=== PATIENT | female | born 1985 | race African-American/Black ===

== ENCOUNTER 2017-08-04 01:52 | Emergency (ER) | payer MEDICAID ==
[~2017-08-04] VITALS: Ht 180.3 cm; Wt 81.2 kg
--- NOTE | 2017-08-04 01:59 | NUR ---
Note miller in EDM - 08/04/17 at 0201 by KASHMIR PT TO ER 9, PT BIB RA C/O BURNING WHEN HE URINATES X 2 WEEKS. PT PLACED ON VS MONITOR. RESP EVEN UNLABORED/NAD NOTED. AWAITING MD PASTOR.
--- NOTE | 2017-08-04 02:01 | NUR ---
PT TO ER BED 9. PT BIB RA, PT C/O LEFT KNEE PAIN. DENIES FALLING/INJURY X 1 DAY. PT PLACED ON VS MONITOR. RESP EVEN UNLABORED/NAD NOTED/AOX4.
[2017-08-04] MEDS ORDERED: IBUPROFEN 400 MG TABLET PO ONE (02:30)
[2017-08-04] MEDS ORDERED: IBUPROFEN 400 MG TABLET ONE (02:49)
--- NOTE | 2017-08-04 02:53 | NUR ---
PT REFUSED MOTRIN 800MG, STATES "I WANT BENEDRYL TO GO TO SLEEP". MD MADE AWARE, NO NEW ORDERS RECEIVED.
--- NOTE | 2017-08-04 03:14 | NUR ---
Patient discharged to home in stable condition. Patient refused written and verbal after care instructions. Patient refused prescription. Pt ambulatory with a steady gait.
[2017-08-04 03:17] VITALS: BP 122/90
== END 2017-08-04 03:18 | disposition home or self-care (01) ==
LOC: ER 01:55
DX: M25.562 Pain in left knee (principal); G89.29 Other chronic pain; E11.9 Type 2 diabetes mellitus without complications; Z88.6 Allergy status to analgesic agent; Z88.5 Allergy status to narcotic agent
CPT/HCPCS: 73564; 99284; A4606; Z7610

== ENCOUNTER 2017-12-03 01:31 | Emergency (ER) | payer MEDICAID ==
[~2017-12-03] VITALS: Ht 175.3 cm; Wt 65.8 kg
--- NOTE | 2017-12-03 01:31 | NUR ---
TO BED 9 BIB PARAMEDICS C/O HIGH BLOODSUGAR. PT AAOX4 NO ACUTE DISTRESS NOTED, RESP EVEN AND UNLABORED. PLACE PT ON CARDIAC MONITORING, CONTINUOUS POX. URINE SAMPLE COLLECTED AND SENT TO LAB. PENDING ER MD PASTOR.
--- NOTE | 2017-12-03 01:31 | NUR ---
PER EMS BS-HI. ER MD NUNN AWARE
--- NOTE | 2017-12-03 01:41 | NUR ---
ER MD AT BEDSIDE TO EVAL PT WITH ORDERS RECEIVED. WILL CARRY OUT ORDERS.
--- NOTE | 2017-12-03 01:50 | NUR ---
STARTED SL 18G TO LFRA, BLOOD DRAWN AND SENT TO LAB.
[2017-12-03] MEDS ORDERED: IV NS 0.9% 1,000 ML BAG IV ONE ×3 (02:00→03:30)
[2017-12-03 02:08] LABS: BASOPHILS % (AUTO) 0.4 % (0.0-2.0); EOSINOPHILS % (AUTO) 0.3 % (0.0-6.0); HEMATOCRIT 41 % (33-45); HEMOGLOBIN 12.9 g/dL (11.5-14.8); LYMPHOCYTES # (AUTO) 2.1 /CMM (0.8-4.8); LYMPHOCYTES % (AUTO) 35.4 % (20.0-44.0); MEAN CORPUSCULAR HGB CONC 32 g/dl (31.0-36.0); MEAN CORPUSCULAR VOLUME 84 fL (82-100); MONOCYTES # (AUTO) 0.4 /CMM (0.1-1.30); MONOCYTES % (AUTO) 7.4 % (2.0-12.0); NEUTROPHILS # (AUTO) 3.3 /CMM (1.8-8.9); NEUTROPHILS % (AUTO) 56.5 % (43.0-81.0); PLATELET COUNT (AUTO) 274 /CMM (150-450); RDW COEFFICIENT OF VARIATION 15.9 (11.5-15.0); RED BLOOD CELL COUNT(AUTO) 4.82 MIL/uL (4.0-5.2); WHITE BLOOD COUNT (AUTO) 5.9 K/uL (4.3-11.0)
[2017-12-03 02:15] LABS: APPEARANCE,URINE CLEAR (CLEAR); BILIRUBIN,URINE NEGATIVE (NEGATIVE); BLOOD, URINE NEGATIVE Ery/uL (NEGATIVE); COLOR,URINE YELLOW (YELLOW); KETONES,URINE NEGATIVE (NEGATIVE); LEUKOCYTE ESTERASE ,URINE NEGATIVE (NEGATIVE); NITRITE, URINE NEGATIVE (NEGATIVE); PROTEIN,URINE NEGATIVE (NEGATIVE); UGLUCOSE 3+ mg/dL (NEGATIVE); UROBILINOGEN,URINE 0.2 EU/dL (0.2)
[2017-12-03 02:28] LABS: RBC,URINE 0-2 /HPF (0-2)
[2017-12-03 02:29] LABS: BACTERIA,URINE None seen /HPF (None Seen); SQUAMOUS EPITHELIAL CELL,UR Few /HPF (None Seen); WBC,URINE 0-2 /HPF (0-3)
[2017-12-03 02:32] LABS: CALCIUM, SERUM 10.2 mg/dL (8.5-10.1); CREATININE 0.9 mg/dL (0.6-1.3); POTASSIUM 4.6 mmol/L (3.5-5.1)
[2017-12-03] MEDS ORDERED: INSULIN REGULAR, HUMAN 100 UNIT/ML 10 ML VIAL SQ ONE (03:00)
[2017-12-03] MEDS ORDERED: INSULIN REGULAR, HUMAN 100 UNIT/ML 10 ML VIAL ONE (03:02)
--- NOTE | 2017-12-03 03:12 | NUR ---
[facility] DICKERSON CALLED . WAITING FOR MD CALL BACK.
--- NOTE | 2017-12-03 03:38 | NUR ---
PT ACCEPTED AT [facility] BY DR STEWART, # FOR REPORT [phone]. ETA [id number]
--- NOTE | 2017-12-03 04:08 | NUR ---
REPORT CALLED TO [facility] CAMPOS. REPORT GIVEN TO [facility].
[2017-12-03 04:12] VITALS: BP 112/58
== END 2017-12-03 04:34 | disposition short-term general hospital (02) ==
LOC: ER 01:33
DX: E11.65 Type 2 diabetes mellitus with hyperglycemia (principal); I10 Essential (primary) hypertension; Z88.5 Allergy status to narcotic agent; Z88.6 Allergy status to analgesic agent
CPT/HCPCS: 36415; 80048-TC; 81000-TC; 82962-TC; 83605-TC; 84703-TC; 85025-TC; 87040-TC; 87081-TC; A4606; J1815; J7030; Z7610

== ENCOUNTER 2017-12-08 20:07 | Emergency (ER) | payer MEDICAID ==
[~2017-12-08] VITALS: Ht 180.3 cm; Wt 59.0 kg
[2017-12-08 20:08] VITALS: BP 151/112
[2017-12-08] MEDS ORDERED: ONDANSETRON 4 MG TAB.RAPDIS ONE (20:21)
[2017-12-08] MEDS ORDERED: ONDANSETRON 4 MG TAB.RAPDIS SL ONE (20:30)
[2017-12-08 20:55] LABS: CALCIUM, SERUM 9.3 mg/dL (8.5-10.1); CREATININE 0.6 mg/dL (0.6-1.3); POTASSIUM 3.9 mmol/L (3.5-5.1)
[2017-12-08 21:01] LABS: BASOPHILS % (AUTO) 0.6 % (0.0-2.0); EOSINOPHILS % (AUTO) 0.1 % (0.0-6.0); HEMATOCRIT 40 % (33-45); HEMOGLOBIN 13.2 g/dL (11.5-14.8); LYMPHOCYTES # (AUTO) 3.3 /CMM (0.8-4.8); LYMPHOCYTES % (AUTO) 43.4 % (20.0-44.0); MEAN CORPUSCULAR HGB CONC 33 g/dl (31.0-36.0); MEAN CORPUSCULAR VOLUME 81 fL (82-100); MONOCYTES # (AUTO) 0.5 /CMM (0.1-1.30); MONOCYTES % (AUTO) 6.2 % (2.0-12.0); NEUTROPHILS # (AUTO) 3.9 /CMM (1.8-8.9); NEUTROPHILS % (AUTO) 49.7 % (43.0-81.0); PLATELET COUNT (AUTO) 286 /CMM (150-450); RDW COEFFICIENT OF VARIATION 13.7 (11.5-15.0); RED BLOOD CELL COUNT(AUTO) 4.92 MIL/uL (4.0-5.2); WHITE BLOOD COUNT (AUTO) 7.7 K/uL (4.3-11.0)
[2017-12-08] MEDS ORDERED: INSULIN REGULAR, HUMAN 100 UNIT/ML 10 ML VIAL SQ ONE (22:00)
[2017-12-08] MEDS ORDERED: INSULIN REGULAR, HUMAN 100 UNIT/ML 10 ML VIAL ONE (22:01)
--- NOTE | 2017-12-08 22:03 | NUR ---
2ND VERIFICATION FOR 12 UNITS REG INSULIN.
[2017-12-08 22:20] LABS: APPEARANCE,URINE CLEAR (CLEAR); BILIRUBIN,URINE NEGATIVE (NEGATIVE); BLOOD, URINE NEGATIVE Ery/uL (NEGATIVE); COLOR,URINE YELLOW (YELLOW); KETONES,URINE NEGATIVE (NEGATIVE); LEUKOCYTE ESTERASE ,URINE NEGATIVE (NEGATIVE); NITRITE, URINE NEGATIVE (NEGATIVE); PROTEIN,URINE NEGATIVE (NEGATIVE); UGLUCOSE 3+ mg/dL (NEGATIVE); UROBILINOGEN,URINE 0.2 EU/dL (0.2)
[2017-12-08 22:24] LABS: BACTERIA,URINE Moderate /HPF (None Seen); RBC,URINE 0-2 /HPF (0-2); SQUAMOUS EPITHELIAL CELL,UR Many /HPF (None Seen); YEAST,URINE Few /HPF (None Seen)
--- NOTE | 2017-12-08 22:38 | NUR ---
PT'S BLOOD SUGAR IS 510. LAKESHIA HERNANDEZ IS AWARE. NEW ORDERS GIVEN AND CARRIED OUT.
[2017-12-08] MEDS ORDERED: IV NS 0.9% 1,000 ML IV ONE (23:00)
--- NOTE | 2017-12-08 23:13 | NUR ---
PT PULLED OUT HER IV AND REFUSED FURTHER TREATMENT. PT WAS GIVEN AN AMA FORM AND REFUSED TO SIGN. PT REC'D D/C PAPER AND REFUSED TO SIGN THE D/C PAPERWORK . PT AMBULATED OUT WITH A STEADY GAIT.
== END 2017-12-08 23:15 | disposition left against medical advice (07) ==
LOC: ER 20:09
DX: M79.642 Pain in left hand (principal); M79.641 Pain in right hand; M79.672 Pain in left foot; M79.671 Pain in right foot; R20.8 Other disturbances of skin sensation; E10.9 Type 1 diabetes mellitus without complications; I10 Essential (primary) hypertension; Z88.6 Allergy status to analgesic agent
CPT/HCPCS: 36415; 80048-TC; 81000-TC; 82962-TC; 85025-TC; 87086-TC; A4606; J1815; J7030; Q0162; Z7610

== ENCOUNTER 2017-12-09 15:27 | Emergency (ER) | payer MEDICAID ==
[~2017-12-09] VITALS: Ht 172.7 cm; Wt 74.8 kg
--- NOTE | 2017-12-09 15:40 | NUR ---
[id number] FOR BILATERAL FEET PAIN. PT STATES PAIN /10. PT IS AAOX4. RESP EVEN AND UNLBAORED. SKIN WARM,DRY,RED TO TOUCH. NO S/S OF ACUTE DISTRESS NOTED. VSS. PT PLACED ON MONITOR AND POX. -N/V/D.
--- NOTE | 2017-12-09 16:01 | NUR ---
ACCUCHECK SHOWS HIGH, AGRICULTURAL SCIENTIST DEGRASSE MAD AWARE OF RESULTS. AWAITING ORDERS.
[2017-12-09 16:26] LABS: BASOPHILS % (AUTO) 0.7 % (0.0-2.0); EOSINOPHILS % (AUTO) 0.2 % (0.0-6.0); HEMATOCRIT 38 % (33-45); HEMOGLOBIN 12.4 g/dL (11.5-14.8); LYMPHOCYTES # (AUTO) 2.1 /CMM (0.8-4.8); LYMPHOCYTES % (AUTO) 30.2 % (20.0-44.0); MEAN CORPUSCULAR HGB CONC 33 g/dl (31.0-36.0); MEAN CORPUSCULAR VOLUME 82 fL (82-100); MONOCYTES # (AUTO) 0.4 /CMM (0.1-1.30); MONOCYTES % (AUTO) 6.5 % (2.0-12.0); NEUTROPHILS # (AUTO) 4.4 /CMM (1.8-8.9); NEUTROPHILS % (AUTO) 62.4 % (43.0-81.0); PLATELET COUNT (AUTO) 256 /CMM (150-450); RDW COEFFICIENT OF VARIATION 14.1 (11.5-15.0); RED BLOOD CELL COUNT(AUTO) 4.58 MIL/uL (4.0-5.2); WHITE BLOOD COUNT (AUTO) 6.9 K/uL (4.3-11.0)
[2017-12-09] MEDS ORDERED: IV NS 0.9% 1,000 ML BAG IV ONE (16:30)
[2017-12-09 16:41] LABS: ALANINE AMINOTRANSFERASE 22 U/L (12-78); ALBUMIN 3.3 g/dL (3.4-5.0); ALKALINE PHOSPHATASE 113 U/L (46-116); ASPARTATE AMINOTRANSFERASE 15 U/L (15-37); BILIRUBIN,TOTAL 0.4 mg/dL (0.2-1.0); CALCIUM, SERUM 8.9 mg/dL (8.5-10.1); CARBON DIOXIDE 24 mmol/L (21-32); CHLORIDE 98 mmol/L (98-107); CREATININE 0.8 mg/dL (0.6-1.3); MAGNESIUM 1.5 mg/dL (1.8-2.4); PHOSPHORUS 3.3 mg/dL (2.5-4.9); POTASSIUM 4.5 mmol/L (3.5-5.1); SODIUM SERUM 129 mmol/L (136-145); TOTAL PROTEIN, SERUM 6.8 g/dL (6.4-8.2); UREA NITROGEN, BLOOD 9 mg/dL (7-18)
[2017-12-09 16:43] LABS: GLUCOSE 659 mg/dL (74-106)
[2017-12-09 17:05] LABS: APPEARANCE,URINE Clear (CLEAR); BILIRUBIN,URINE Negative (NEGATIVE); BLOOD, URINE Negative Ery/uL (NEGATIVE); COLOR,URINE Yellow (YELLOW); KETONES,URINE Negative (NEGATIVE); LEUKOCYTE ESTERASE ,URINE Negative (NEGATIVE); NITRITE, URINE Negative (NEGATIVE); PROTEIN,URINE Negative (NEGATIVE); UGLUCOSE 500 MG/DL mg/dL (NEGATIVE); UROBILINOGEN,URINE 0.2 EU/dL (0.2)
[2017-12-09] MEDS ORDERED: INSULIN REGULAR, HUMAN 100 UNIT/ML 10 ML VIAL SQ ONE ×2 (18:00→21:30)
--- NOTE | 2017-12-09 18:08 | NUR ---
COURTNEY GILBERTP TO PRESENT CASE
[2017-12-09] MEDS ORDERED: INSULIN REGULAR, HUMAN 100 UNIT/ML 10 ML VIAL ONE (18:11)
--- NOTE | 2017-12-09 18:37 | NUR ---
SPOKE TO KERN VALLEYP STATES WILL HAVE DOCTOR CALL SHORTLY REGARDING PATIENT
--- NOTE | 2017-12-09 19:07 | NUR ---
ACCUCHECK PERFORMED. ACCUCHECK 492, SOLUTIONS ENGINEER CONNER MADE AWARE.
--- NOTE | 2017-12-09 19:36 | NUR ---
Romeo bhatt in VIVI - 12/09/17 at 1938 by KHOA CALLED SIL[facility] DIAZ STATES NO CURRENT ETA WILL CALL LATER WITH MORE INFO.
--- NOTE | 2017-12-09 19:38 | NUR ---
[facility] NO CURRENT [facility] FOR [facility]ANCE WILL CALL LATER WITH MORE INFORMATION
[2017-12-09 20:07] VITALS: BP 156/102
--- NOTE | 2017-12-09 20:13 | NUR ---
[facility] ETA 2044
--- NOTE | 2017-12-09 20:16 | NUR ---
REPORT GIVEN TO JACQUELYN CORADO FROM [facility] FOR [facility].
--- NOTE | 2017-12-09 20:50 | NUR ---
PRN BEDSIDE FOR PT TRANSPORT TO [facility]
[2017-12-09] MEDS ORDERED: INSULIN ASPART/LISPRO 100 UNIT/ML CARTRIDGE SQ STA (20:58)
--- NOTE | 2017-12-09 21:09 | NUR ---
Patient Tranfers to outside Facility Physician: GAURAV FIERRO Location:[facility] PER MD ROTHMAN, PT WAS GIVEN 10 UNITS OF REGULAR INSUL SUBQ PRIOR TO PT BEING TRANSPORTED OUT. DOSE VERIFIED BY JACQUELYN TINEO. VSS UPON TRANSPORT
== END 2017-12-09 21:18 | disposition short-term general hospital (02) ==
LOC: ER 15:31
DX: E11.65 Type 2 diabetes mellitus with hyperglycemia (principal); E11.40 Type 2 diabetes mellitus with diabetic neuropathy, unspecified; F31.9 Bipolar disorder, unspecified; I10 Essential (primary) hypertension; Z59.0 Homelessness; Z79.4 Long term (current) use of insulin; Z91.19 Patient's noncompliance with other medical treatment and regimen; Z88.5 Allergy status to narcotic agent; Z88.6 Allergy status to analgesic agent
CPT/HCPCS: 36415; 80053; 81001; 82010; 82962 ×3; 83735; 84100; 85025; 96360; 96372 ×2; 99285; A4606; J1815 ×2; J7030; Z7610; 81000-TC

== ENCOUNTER 2017-12-15 19:56 | Emergency (ER) | payer MEDICAID ==
--- NOTE | 2017-12-15 19:58 | NUR ---
CAME IN BY AMBULANCE AND LEFT RIGHT AWAY BEFORE THE PARAMEDICS LEFT.
== END 2017-12-15 20:25 | disposition left against medical advice (07) ==
LOC: ER 19:58
DX: Z53.21 Procedure and treatment not carried out due to patient leaving prior to being seen by health care provider (principal)

== ENCOUNTER 2018-01-21 00:27 | Emergency (ER) | payer MEDICAID, OTHER ==
[~2018-01-21] VITALS: Ht 180.3 cm; Wt 80.7 kg
[2018-01-21] MEDS ORDERED: LORAZEPAM INJ 2 MG/ML VIAL IV ONE (01:00)
[2018-01-21] MEDS ORDERED: INSULIN REGULAR, HUMAN 100 UNIT/ML 10 ML VIAL IV ONE (01:00)
[2018-01-21] MEDS ORDERED: ASPIRIN 81 MG TAB.CHEW PO ONE (01:00)
--- NOTE | 2018-01-21 01:00 | NUR ---
PT BIBRA "AM COLD AND MY BLOOD SUGAR IS HIGH" PT AOX3 RR EVEN AND UNLABORED. NO SOB NOTED. NAD NOTED. NO NVD AT THIS TIME. PT PLACED ON MONTIOR PT NOT DIAPHORETIC. PT WITH HX OF INSULIN NONCOMPLIANCE. DR. GUADALUPE AT BEDSIDE FOR EVAL.
[2018-01-21] MEDS ORDERED: ASPIRIN 81 MG TAB.CHEW ONE (01:11)
[2018-01-21] MEDS ORDERED: INSULIN REGULAR, HUMAN 100 UNIT/ML 10 ML VIAL ONE (01:12)
[2018-01-21] MEDS ORDERED: LORAZEPAM INJ 2 MG/ML VIAL ONE (01:12)
[2018-01-21 01:31] LABS: BASOPHILS % (AUTO) 0.3 % (0.0-2.0); HEMATOCRIT 44 % (33-45); HEMOGLOBIN 14.2 g/dL (11.5-14.8); LYMPHOCYTES # (AUTO) 1.7 /CMM (0.8-4.8); LYMPHOCYTES % (AUTO) 26.1 % (20.0-44.0); MEAN CORPUSCULAR HGB CONC 33 g/dl (31.0-36.0); MEAN CORPUSCULAR VOLUME 81 fL (82-100); MONOCYTES # (AUTO) 0.4 /CMM (0.1-1.30); NEUTROPHILS # (AUTO) 4.4 /CMM (1.8-8.9); NEUTROPHILS % (AUTO) 67.6 % (43.0-81.0); PLATELET COUNT (AUTO) 253 /CMM (150-450); RDW COEFFICIENT OF VARIATION 13.8 (11.5-15.0); RED BLOOD CELL COUNT(AUTO) 5.37 MIL/uL (4.0-5.2); WHITE BLOOD COUNT (AUTO) 6.6 K/uL (4.3-11.0)
--- NOTE | 2018-01-21 01:36 | NUR ---
ACCUCHECK READING "HIGH" MD AWARE. PT MEDICATED ORDERED. INSULIN 15UNITS IV WITNESSED AND VERIFIED BY 2ND RN SILVANA
[2018-01-21 01:47] LABS: CALCIUM, SERUM 9.9 mg/dL (8.5-10.1); CARBON DIOXIDE 25 mmol/L (21-32); CHLORIDE 91 mmol/L (98-107); POTASSIUM 5.2 mmol/L (3.5-5.1); SODIUM SERUM 126 mmol/L (136-145); UREA NITROGEN, BLOOD 12 mg/dL (7-18)
[2018-01-21 01:50] LABS: GLUCOSE 806 mg/dL (74-106); TROPONIN I < 0.017 ng/mL (0.00-0.056)
[2018-01-21 01:55] LABS: ALANINE AMINOTRANSFERASE 28 U/L (12-78); ALBUMIN 4.3 g/dL (3.4-5.0); ALKALINE PHOSPHATASE 180 U/L (46-116); ASPARTATE AMINOTRANSFERASE 20 U/L (15-37); B-TYPE NATRIURETIC PEPTIDE 34 PG/ML (0-125); BILIRUBIN,DIRECT 0.1 mg/dL (0.0-0.2); BILIRUBIN,TOTAL 0.5 mg/dL (0.2-1.0); TOTAL PROTEIN, SERUM 8.8 g/dL (6.4-8.2)
[2018-01-21] MEDS ORDERED: IV NS 0.9% 1,000 ML BAG IV ONE (02:00)
--- NOTE | 2018-01-21 02:28 | NUR ---
Patient is resting comfortably in bed with eyes closed. Easily aroused. VSS
--- NOTE | 2018-01-21 02:32 | NUR ---
ACCUCHECK 561. DR GUADALUPE MADE AWARE. NO S/S HYPO/HYPERGLYCEMIA
--- NOTE | 2018-01-21 02:52 | NUR ---
SPOKE TO ROBER FROM [facility]. WAITING FOR MD CALL BACK.
--- NOTE | 2018-01-21 03:22 | NUR ---
[facility]
--- NOTE | 2018-01-21 03:26 | NUR ---
Patient is resting comfortably in bed with eyes closed. Easily aroused. VSS
--- NOTE | 2018-01-21 03:30 | NUR ---
CALLED LAB FOR CXR
--- NOTE | 2018-01-21 03:31 | NUR ---
PT GOING TO [facility], ACCEPTED BY [facility] AT 0415 NUMBER FOR REPORT IS [phone]
--- NOTE | 2018-01-21 03:41 | NUR ---
ACCUCHECK 600. DR GUADALUPE MADE AWARE
--- NOTE | 2018-01-21 03:43 | NUR ---
REPORT GIVEN [facility]ILVIA BOYD FOR [facility]
--- NOTE | 2018-01-21 04:08 | NUR ---
REPORT GIVEN TO RN [facility] ROBERT ALLEN, PT AWARE OF TRANSFER. PT AOX3. IV INTACT AND PATENT. NO S/S INFECTION OR INFILTRATION NOTED. PT TO BE TRANSFERRED TO [facility]IA [facility]. PER [facility] AM[facility]ULANCE TOOK OVER CARE.
[2018-01-21 04:18] VITALS: BP 129/86
== END 2018-01-21 04:23 | disposition short-term general hospital (02) ==
LOC: ER 00:29
DX: E10.65 Type 1 diabetes mellitus with hyperglycemia (principal); I10 Essential (primary) hypertension; I21.9 Acute myocardial infarction, unspecified; Z59.0 Homelessness; Z79.4 Long term (current) use of insulin; Z79.82 Long term (current) use of aspirin; Z91.14 Patient's other noncompliance with medication regimen; Z88.6 Allergy status to analgesic agent; Z88.5 Allergy status to narcotic agent
CPT/HCPCS: 36415; 71045-TC; 80048-TC; 80076-TC; 82010-TC; 82962-TC; 83880; 84484-TC; 84703-TC; 85025-TC; 85378-TC; A4606; J1815; J2060; J7030; Z7610